=== PATIENT | female | born 1975 | race Caucasian/White ===

== ENCOUNTER 2019-05-21 08:11 | Emergency (ER) | payer OTHER ==
--- OUTSIDE RECORDS SUMMARY | 2019-05-21 08:13 | XMS REPORT ---
:1975 [facility] [address] [place] [id number] Care Team Providers Name Role Phone Unavailable Unavailable Unavailable Problems This patient has no known problems. Allergies, Adverse Reactions, Alerts This patient has no known allergies or adverse reactions. Medications This patient has no known medications.
--- OUTSIDE RECORDS SUMMARY | 2019-05-21 08:13 | XMS REPORT | Summary of Care ---
:1975 Author Organization [facility] - Health Address [address] [place] [address] Care Team Providers Name Role Phone Nadeem Singletary Primary Care Provider Encounter Details Date Type Department Care Team Description 03/05/2019 Orders Only [facility] Doctor Unassigned, No [address] [facility] [place] [address] [address] [place] [address] Allergies Not on Filedocumented as of this encounter (statuses as of 03/05/2019) Medications Not on filedocumented as of this encounter (statuses as of 03/05/2019) Active Problems Not on filedocumented as of this encounter (statuses as of 03/05/2019) Social History Tobacco Use Types Packs/Day Years Used Date Never Assessed Sex Assigned at Date Recorded Not on file Job Start Date Occupation Industry Not on file Not on file Not on file Travel History Travel Start Travel End No recent travel history available. documented as of this encounter Last Filed Vital Signs Not on filedocumented in this encounter Plan of Treatment Health Maintenance Due Date Last Done Comments DTaP,Tdap,and Td Vaccines (1 - 1992 Tdap) PAP SMEAR 1994 MAMMOGRAM 2013 INFLUENZA VACCINE (#1) 2019 PNEUMOCOCCAL 0-64 YEARS COMBINED Aged Out No longer eligible based on SERIES patient's age to complete this topic documented as of this encounter Procedures Procedure Name Priority Date/Time Associated Diagnosis Comments ASSIGNMENT OF BENEFITS Routine 03/05/2019 8:12 AM CDT documented in this encounter Results Not on filedocumented in this encounter Insurance Payer Benefit Plan / Subscriber ID Effective Dates Phone Address Type Group FOR [id number] 2017-Present Medicare LIFE Supplement documented as of this encounter
--- OUTSIDE RECORDS SUMMARY | 2019-05-21 08:13 | XMS REPORT | Summary of Care ---
:1975 Author Organization [facility] - [facility] Address [address] [place] [address] Care Team Providers Name Role Phone Nadeem Singletary Primary Care Provider Reason for Referral Radiology Services (Routine) Status Reason Specialty Diagnoses / Referred By Referred To Procedures Contact Contact Closed Diagnostic Diagnoses Screening breast examination Z12.31 (ICD-10-CM) - Screening breast examination Nadeem Singletary Radiology Procedures BI SCREENING MAMMOGRAM BILATERAL CHG SCREENING MAMMOGRAPHY BI 2-VIEW BREAST INC CAD [id number] - BI SCREENING MAMMOGRAM BILATERAL [id number] - CHG SCREENING MAMMOGRAPHY BI 2-VIEW BREAST INC CAD [address] [address] Radiology Services (Routine) Status Reason Specialty Diagnoses / Referred By Referred To Procedures Contact Contact Closed Diagnostic Diagnoses Screening breast examination Z12.31 (ICD-10-CM) - Screening breast examination Nadeem Singletary Radiology Procedures BI SCREENING MAMMOGRAM BILATERAL CHG SCREENING MAMMOGRAPHY BI 2-VIEW BREAST INC CAD [id number] - BI SCREENING MAMMOGRAM BILATERAL 78764 - CHG SCREENING MAMMOGRAPHY BI 2-VIEW BREAST INC CAD [address] [address] Reason for Visit Radiology Services (Routine) Status Reason Specialty Diagnoses / Referred By Referred To Procedures Contact Contact Closed Diagnostic Diagnoses Screening breast examination Z12.31 (ICD-10-CM) - Screening breast examination Hayder Nadeem Radiology Procedures BI SCREENING MAMMOGRAM BILATERAL CHG SCREENING MAMMOGRAPHY BI 2-VIEW BREAST INC CAD [id number] - BI SCREENING MAMMOGRAM BILATERAL [id number] - CHG SCREENING MAMMOGRAPHY BI 2-VIEW BREAST INC CAD [address] [address] Encounter Details Date Type Department Care Team Description 03/05/2019 Hospital Encounter [facility] Radiology Arrived [facility] [address] [place] [address] [place] [id number] Allergies Not on Filedocumented as of this encounter (statuses as of 03/06/2019) Medications Not on filedocumented as of this encounter (statuses as of 03/06/2019) Active Problems Not on filedocumented as of this encounter (statuses as of 03/06/2019) Social History Tobacco Use Types Packs/Day Years [...] Procedure Name Priority Date/Time Associated Diagnosis Comments BI SCREENING Routine 03/05/2019 8:51 AM Screening breast Results for this MAMMOGRAM BILATERAL CDT examination procedure are in the results section. documented in this encounter Results BI SCREENING MAMMOGRAM BILATERAL (03/05/2019 8:51 AM CDT) Specimen Narrative Performed At Examination: PACS BI SCREENING MAMMOGRAM BILATERAL History: Patient is 43 year old and is seen for:Screening breast examination. Hormone history includes other. Surgical history includes hysterectomy. No relevant medical history has been documented for this patient. Computer-aided detection (CAD) utilized. Comparisons : None available Findings: The breasts have scattered areas of fibroglandular density. There is no evidence of suspicious masses, calcifications, or other abnormal findings. Bilateral normal/retropectoral silicone type breast implants noted. Impression: No signs of malignancy. Recommendation: Annual mammographic follow-up - Bilateral BI-RADS Category: Both 2 - Benign Performing Organization Address City/State/Zipcode Phone Number PACS documented in this encounter Visit Diagnoses Diagnosis Screening breast examination Other screening breast examination documented in this encounter Insurance Payer Benefit Plan / Subscriber ID Effective Dates Phone Address Type Group FOR [id number] 2017-Present Medicare LIFE Supplement documented as of this encounter
[2019-05-21 08:49] LABS: Absolute Lymphocytes (CBC) 1.5 K/uL (0.7-4.9); Basophils % 0.4 % (0-1.3); Hematocrit 41.3 % (36.0-45.0); Lymphocytes % 23.8 % (15.3-44.8); MPV 8.9 fL (7.6-11.3); RBC Red Blood Cell Count 4.45 M/uL (3.86-4.86)
[2019-05-21 09:03] LABS: Bilirubin Direct 0.1 mg/dL (0-0.2); Bilirubin Total 0.4 mg/dL (0.2-1.0); Protein, Total 7.4 g/dL (6.4-8.2)
--- NOTE | 2019-05-21 09:41 | RAD REPORT ---
EXAM DESCRIPTION: CT - Abdomen Pelvis W Contrast - 05/21/2019 9:19 am CLINICAL HISTORY: RLQ abd pain COMPARISON: None. TECHNIQUE: Biphasic, helical CT imaging of the abdomen and pelvis was performed following 100 ml non -ionic IV contrast. No oral contrast given. All CT scans are performed using dose optimization technique as appropriate and may include automated exposure control or mA/KV adjustment according to patient size. FINDINGS: No suspicious findings in the lung bases. The liver, spleen, and pancreas show no suspicious findings. Gallbladder and biliary tree are also wi thout suspicious finding. Symmetric renal function is seen with no hydronephrosis or suspicious renal mass. No pyelonephritis o r acute parenchymal process. No bladder abnormalities. No obstructing or nonobstructing calculi. No a drenal abnormalities. Uterus is absent. No acute finding at the vaginal cuff. Ovaries are not clearly identifiable and may be surgically absent, atrophic or obscured by isodense bowel. An ovarian or adnexal finding is not id entifiable. No dilated bowel loops or bowel wall thickening. Appendix is identified and normal. No free air, free fluid or inflammatory stranding. No hernia, mass or bulky lymphadenopathy. No acute GI process seen . No suspicious bony findings. Mild disc, endplate and facet degenerative change noted. IMPRESSION: Contrast enhanced CT abdomen and pelvis imaging shows no acute or suspicious finding.
[2019-05-21 09:46] LABS: Urine Blood NEGATIVE (NEG); Urine Glucose NEGATIVE (NEG); Urine Protein NEGATIVE (NEG); Urine pH 7.5 (5.0-7.0)
--- NOTE | 2019-05-21 09:47 | ER ---
Nurse's Notes [facility] Name: Meche Knight Age: 43 yrs Sex: Female : 1975 Arrival Date: 05/21/2019 Time: 08:13 Bed 7 Private MD: Diagnosis: Lower abdominal pain, unspecified Presentation: 05/21 08:27 Presenting complaint: Patient states: Abd pain x 3 days with lose stools. Transition of care: patient was not received from another setting of care. Onset of symptoms was May 18, 2019. Risk Assessment: Do you want to hurt yourself or someone else? Patient reports no desire to harm self or others. Initial Sepsis Screen: Does the patient meet any 2 criteria? No. Patient's initial sepsis screen is negative. Does the patient have a suspected source of infection? No. Patient's initial sepsis screen is negative. Care prior to arrival: None. 08:27 Method Of Arrival: Ambulatory ss 08:27 Acuity: MANPREET 3 ss Triage Assessment: 08:30 General: Appears in no apparent distress. comfortable, Behavior is calm, cooperative, bp appropriate for age. Pain: Complains of pain in abdomen. EENT: No deficits noted. Neuro: No deficits noted. Cardiovascular: No deficits noted. Respiratory: No deficits noted. GI: Reports upper abdominal pain. : No signs and/or symptoms were reported regarding the genitourinary system. Derm: No deficits noted. Musculoskeletal: No deficits noted. Historical: - Allergies: 08:30 No Known Allergies; ss - Home Meds: 08:30 None [Active]; ss - PMHx: 08:30 None; ss - PSHx: 08:30 Hysterectomy; ; ss - Immunization history:: Adult Immunizations up to date. - Social history:: Smoking status: Patient/guardian denies using tobacco. - Family history:: not pertinent. - Ebola Screening: : Patient denies exposure to infectious person Patient denies travel to an Ebola-affected area in the 21 days before illness onset. - Hospitalizations: : No recent hospitalization is reported. Screenin:39 Abuse screen: Denies threats or abuse. Denies injuries from another. Nutritional bp screening: No deficits noted. Tuberculosis screening: No symptoms or risk factors identified. Fall Risk None identified. Assessment: 08:30 General: SEE TRIAGE NOTE. Pain: Complains of pain in abdomen. GI: Bowel sounds present bp X 4 quads. Abd is soft X 4 quads. 09:48 Reassessment: PT D/C HOME AMBULATORY WITH FAMILY, DX WITH LOWER ABDOMINAL PAIN. bp Vital Signs: 08:25 BP 138 / 87; Pulse 68; Resp 16; Temp 97.8; Pulse Ox 100% on R/A; Weight 72.57 kg; ss Height 5 ft. 4 in. (162.56 cm); Pain 3/10; 09:48 BP 130 / 97; Pulse 71; Resp 16; Temp 98; Pulse Ox 99% ; bp 08:25 Body Mass Index 27.46 (72.57 kg, 162.56 cm) ED Course: 08:13 Patient arrived in ED. as 08:18 Bruce Dobbins MD is Attending Physician. rn 08:25 Arm band placed on right wrist. ss 08:27 Francesco Mahan, RN is Primary Nurse. bp 08:29 Triage completed. ss 08:30 Inserted saline lock: 20 gauge in right forearm, using aseptic technique. Blood bp collected. 08:39 Patient has correct armband on for positive identification. Bed in low position. Call bp light in reach. Side rails up X2. Adult w/ patient. 09:21 CT Abd/Pelvis - IV Contrast Only In Process Unspecified. EDMS 09:49 No provider procedures requiring assistance completed. IV discontinued, intact, bp bleeding controlled, No redness/swelling at site. Pressure dressing applied. Administered Medications: No medications were administered Outcome: 09:46 Discharge ordered by . rn 09:49 Discharged to home ambulatory, with family. bp 09:49 Condition: stable 09:49 Discharge instructions given to patient, Instructed on discharge instructions, follow up and referral plans. Demonstrated understanding of instructions, follow-up care. 10:00 Patient left the ED. bp Signatures: Dispatcher [employer] EDMS Marsha Madsen as Bruce Dobbins MD MD rn Smirch, Shelby, RN RN Francesco Mahan, KIA RN bp
--- NOTE | 2019-05-21 09:48 | EDPHYS ---
Physician Documentation [facility] Name: Meche Knight Age: 43 yrs Sex: Female : 1975 Arrival Date: 05/21/2019 Time: 08:13 Bed 7 Private MD: ED Physician Bruce Dobbins HPI: 05/21 08:25 This 43 yrs old Female presents to ER via Unassigned with complaints of rn Abdominal Pain. 08:25 The patient presents with abdominal pain right lower quadrant. Onset: The rn symptoms/episode began/occurred 3 day(s) ago. The symptoms do not radiate. Associated signs and symptoms: Pertinent positives: diarrhea, Pertinent negatives: blood in stools, dysuria, fever, hematuria, vaginal discharge, vomiting, vomiting blood. The symptoms are described as crampy, sharp. Modifying factors: The symptoms are alleviated by nothing, the symptoms are aggravated by touching the area. Severity of pain: At its worst the pain was mild in the emergency department the pain is unchanged. The patient has not experienced similar symptoms in the past. The patient has been recently seen by a physician:. Reports RLQ abd pain, began 3 days ago, saw pcp who recommended CT abdomen, did not get CT, reports pain 3/10 and not getting better, but not getting worse, + loose stool without blood. Has had total hysterectomy with ovaries removed as well. . Historical: - Allergies: 08:30 No Known Allergies; ss - Home Meds: 08:30 None [Active]; ss - PMHx: 08:30 None; ss - PSHx: 08:30 Hysterectomy; ; ss - Immunization history:: Adult Immunizations up to date. - Social history:: Smoking status: Patient/guardian denies using tobacco. - Family history:: not pertinent. - Ebola Screening: : Patient denies exposure to infectious person Patient denies travel to an Ebola-affected area in the 21 days before illness onset. - Hospitalizations: : No recent hospitalization is reported. ROS: 08:25 Constitutional: Negative for fever, chills, and weight loss, Eyes: Negative for injury, rn pain, redness, and discharge, Neck: Negative for injury, pain, and swelling, Cardiovascular: Negative for chest pain, palpitations, and edema, Respiratory: Negative for shortness of breath, cough, wheezing, and pleuritic chest pain, Abdomen/GI: + abd pain with loose stool, neg for blood MS/Extremity: Negative for injury and deformity, Skin: Negative for injury, rash, and discoloration, Neuro: Negative for headache, weakness, numbness, tingling, and seizure. Exam: 08:28 Constitutional: This is a well developed, well nourished patient who is awake, alert, rn and in no acute distress. Head/Face: Normocephalic, atraumatic. ENT: MMM Cardiovascular: Regular rate and rhythm. No pulse deficits. Respiratory: No increased work of breathing, no retractions or nasal flaring. Abdomen/GI: soft, mild RLQ tenderness, no rebound MS/ Extremity: Pulses equal, no cyanosis. Neurovascular intact. Full, normal range of motion. Equal circumference. Neuro: Awake and alert, GCS 15 Vital Signs: 08:25 BP 138 / 87; Pulse 68; Resp 16; Temp 97.8; Pulse Ox 100% on R/A; Weight 72.57 kg; ss Height 5 ft. 4 in. (162.56 cm); Pain 3/10; 09:48 BP 130 / 97; Pulse 71; Resp 16; Temp 98; Pulse Ox 99% ; bp 08:25 Body Mass Index 27.46 (72.57 kg, 162.56 cm) ss MDM: 08:18 Patient medically screened. rn 09:46 Differential diagnosis: appendicitis, diverticulitis, non-specific abd pain, rn Ureterolithiasis, urinary tract infection. Data reviewed: vital signs, nurses notes, lab test result(s), radiologic studies, CT scan, and as a result, I will discharge patient. Counseling: I had a detailed discussion with the patient and/or guardian regarding: the historical points, exam findings, and any diagnostic results supporting the discharge/admit diagnosis, lab results, radiology results, the need for outpatient follow up, to return to the emergency department if symptoms worsen or persist or if there are any questions or concerns that arise at home. Special discussion: Based on the patient's Hx, exam, and Dx evaluation, there is no indication for emergent surgery or inpatient Tx. It is understood by the patient/guardian that if the Sx's persist or worsen they need to return immediately for re-evaluation. I discussed with the patient/guardian in detail that at this point there is no indication for admission to the hospital. It is understood, however, that if the symptoms persist or worsen the patient needs to return immediately for re-evaluation. 05/21 08:25 Order name: Basic Metabolic Panel; Complete Time: 09:18 rn 05/21 08:25 Order name: CBC with Diff; Complete Time: 09:18 rn 05/21 08:25 Order name: Creatinine for Radiology; Complete Time: 09:18 rn 05/21 08:25 Order name: Hepatic Function; Complete Time: 09:18 rn 05/21 08:25 Order name: Lipase; Complete Time: 09:18 rn 05/21 08:46 Order name: Urine Dipstick--Ancillary (enter results); Complete Time: 09:52 em1 05/21 08:25 Order name: IV Saline Lock; Complete Time: 08:38 rn 05/21 08:25 Order name: Labs collected and sent; Complete Time: 08:38 rn 05/21 08:25 Order name: Urine Dipstick-Ancillary (obtain specimen); Complete Time: 08:38 rn 05/21 08:25 Order name: CT Abd/Pelvis - IV Contrast Only; Complete Time: 09:45 rn Administered Medications: No medications were administered Disposition: 05/21/19 09:46 Discharged to Home. Impression: Lower abdominal pain, unspecified. - Condition is Stable. - Discharge Instructions: Abdominal Pain, Adult, Pain Without a Known Cause. - Medication Reconciliation Form, Thank You Letter, Antibiotic Education, Prescription Opioid Use form. - Follow up: Private Physician; When: As needed; Reason: Recheck today's complaints, Re-evaluation by your physician. - Problem is new. - Symptoms have improved. Signatures: Dispatcher [employer] EDIN Bruce Dobbins MD MD rn Smirch, Shelby, RN RN ss Peltier, Brian, RN RN bp Corrections: (The following items were deleted from the chart) 10:00 09:46 05/21/2019 09:46 Discharged to Home. Impression: Lower abdominal pain, bp unspecified. Condition is Stable. Forms are Medication Reconciliation Form, Thank You Letter, Antibiotic Education, Prescription Opioid Use. Follow up: Private Physician; When: As needed; Reason: Recheck today's complaints, Re-evaluation by your physician. Problem is new. Symptoms have improved. rn
[2019-05-21 10:09] VITALS: BP 130/97; TEMP 98; O2SAT 99
== END 2019-05-21 10:00 | disposition home or self-care (01) ==
LOC: ER 08:11
DX: R10.31 Right lower quadrant pain (principal)
CPT/HCPCS: 85025; 80048; 36415; 80076; 81003; 83690; 74177; 99283; Q9967